=== PATIENT | male | born 1950 | race Caucasian/White ===

== ENCOUNTER → 2016-08-29 | Outpatient (CLI) | payer OTHER ==
[~2016-08-29] VITALS: Ht 172.7 cm; Wt 80.7 kg
[~2016-08-29] MED LIST: ACCURETIC 20-21 EACH PO; ASPIRIN325 PO; AZATHIOPRINE50 MG PO; BAYER CHEWABLE81 MG PO; COSAMIN DS TAB1 EACH PO; FISH OIL 1,001000 M2 PO; GLUCOSAMINE HC500 MG PO; HYDRALAZINE 2525 M1 PO; HYDROCHLOROTHIA25 M2 PO; KLOR-CON 1010 MEQ PO; LOPRESSOR25 PO; MESTINON60 MG PO; MOBIC7.5 MG PO; NITROSTAT0.4 M1 SL; NORCO 10-325 T1 EACH PO; PHOSPHATIDYLCHOL1 GM PO; PREDNISONE 10 M10 MG PO; PREDNISONE 20 M20 MG PO; PROTONIX 20 MG20 M1 PO; PYRIDOSTIGMINE PO; PYRIDOSTIGMINE60 M1 PO; QUERCETIN DIHYDR1 GM MC; TOPROL XL50 MG PO; TYLENOL325 MG PO; ZOCOR 10 MG TAB10 MG PO
--- NOTE | ~2016-08-29 | HPC ---
[facility] [address] [place] [address] PAIN MANAGEMENT CONSULTATION Name: LIDIA GUERRERO BRENDAN [facility] [id number] Admission: 08/29/16 Attend Phys: Pranay Crum DO Discharge: Date of : 48 Report #: [id number] THIS REPORT FOR: //name// CC: Zabrina Crum INDICATIONS: A 66-year-old gentleman seen in consultation at the request of Dr. Cee for evaluation of pain in neck, left shoulder and arm. The patient notes the pain began greater than 6 weeks ago without antecedent trauma and overuse. Notes he has pain in neck, left shoulder and arm. Paresthesia going into the middle and ring finger. He notes pain, he rates anywhere from 4-8 on a 0-10 visual analog scale, described as continuous and sharp. No significant weakness at this time. He notes tension in his shoulders or movement of the neck exacerbates pain, some relief when he was semi-recumbent and relaxed. The patient incidentally notes that he had a prior lumbar radicular symptom treated with a round of prednisone that it helped. He had been on prednisone in the past for myasthenia gravis , but he had been off prednisone for about a year prior to this most recent cervical radicular issue. He states he has been on prednisone at 50-60 mg a day with some efficacy, though when he tries to drop to 40 mg, his pain becomes quite problematic. REVIEW OF SYSTEMS: Complete review of systems was attached to chart and gone over with the patient. He is . Does not smoke, drink alcohol to excess. History of high blood pressure treated with hydrochlorothiazide and hydralazine. History of coronary artery disease status post endovascular stent in 2005, has not required any Nitrostat or had subsequent chest pain since. Dyslipidemia for which he takes a "statin". The patient was diagnosed with myasthenia gravis about 2 years ago. He has been treated with Imuran, Mestinon and prednisone. Again, notes he had been off prednisone for nearly a year when the cervical radicular symptoms occurred. He has had prior rotator cuff surgery, inguinal hernia repair, right femur surgery in 1966, the aforementioned endovascular stent in 2005, and left and right hip surgeries in 2007 and 2013 respectively. 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 Pain impact score is quite significant for sleep and enjoyment of life. Otherwise, score is about 5.2 for all indices queried. PHYSICAL EXAMINATION: GENERAL: A 5 foot 7 inch, 175 pound gentleman in moderate distress. VITAL SIGNS: BMI is 27.1 kg/m sq. Blood pressure is 145/95, pulse 70, respirations are 15. NEUROLOGIC: Cranial nerves 2-12 are grossly intact. Pupils equal, reactive to light and accommodation. Extraocular muscles are intact. Cervical range of motion is limited. Positive limit with pain going into the left hand again into [facility] [address] [place] [address] PAIN MANAGEMENT CONSULTATION Name: LIDIA GUERRERO Room #: REG JENNIE Pickard#: [id number] Admission: 08/29/16 Attend Phys: Pranay Crum DO Discharge: Date of : 48 Report #: [id number] the long and ring fingers. Deep tendon reflexes are preserved. SKIN AND INTEGUMENT: Intact. HEART: Regular rate and rhythm without murmur. LUNGS: Clear to auscultation. MUSCULOSKELETAL: He has an endomorphic build. EXTREMITIES: Lower extremity strength is symmetric at 4/5. DIAGNOSTIC STUDIES: Include cervical spine x-rays from 08/22/2016, noting cervical spondylosis. Dr. Cee's office note refers to cervical x-rays from 07/24/2016, noting degenerative changes primarily C5 through C7. ASSESSMENT: Symptomatic cervical radiculopathy by clinical exam. RECOMMENDATIONS: 1. We will start the patient on nonsteroidal anti-inflammatory medication, Meloxicam 7.5 b.i.d. 2. Cervical epidural injection under fluoroscopy today. We will have the patient start to aggressively wean his prednisone after the steroid injection, he has been on 50 mg presently decreased to 40, tomorrow 30, the next day 20 mg a day for the next 7 days and then have him drop to 10 mg for the next 7 days. I would like to see him back in 2 weeks for evaluation. If radicular symptoms continue, we will need MRI of the cervical spine at that time. Thank you for allowing me to participate in the patient's care. I will keep you abreast of his progress. PROCEDURE: Cervical epidural steroid injection under fluoroscopy. PROCEDURE NOTE: After written and informed consent was obtained including risk of dural puncture, spinal cord trauma, paralysis and increased pain, the patient was taken to the fluoroscopy suite and placed in the prone position, with appropriate abdominal bolstering, neck was flexed, palms under the thighs. Skin was prepped with ChloraPrep. Sterile draping was applied. Skin wheal with 1% Xylocaine was raised. A 22-gauge 3-1/2 inch epidural Tuohy needle was placed via a midline approach at the C7-T1 interspace, advanced under biplanar fluoroscopy using continuous loss of resistance. With appropriate loss of resistance at the expected depth on lateral view, the glass loss of resistance syringe was disconnected. A low volume extension tubing was connected to the needle and a 5 mL syringe. Negative aspiration for cerebrospinal fluid or blood was noted. A 1 mL of Omnipaque was injected which showed spread within the epidural space on biplanar fluoroscopy. This was followed with 80 mg of triamcinolone plus 1 mL of 1.5% preservative Xylocaine. Needle was withdrawn to the interspinous ligament, 0.5 mL of Xylocaine was used to flush the needle. The needle was then completely withdrawn. The area was cleansed. Band-Aid was applied. The patient was allowed to move off the procedure table and ambulated [facility] [address] [place] [address] PAIN MANAGEMENT CONSULTATION Name: LIDIA GUERRERO Room #: REG [facility]#: [id number] Admission: 08/29/16 Attend Phys: Pranay Crum DO Discharge: Date of : 48 Report #: [id number] to the recovery room, monitored for an appropriate period of time, discharged in good and stable condition. <ELECTRONICALLY SIGNED> By: Pranay Crum DO 09/03/16 0729 1635 0224 Pranay Crum DO /nt
[2016-08-29 13:00] VITALS: BP 145/95
== END ==
LOC: PAIN 07:27
DX: M54.12 Radiculopathy, cervical region (principal); I25.10 Atherosclerotic heart disease of native coronary artery without angina pectoris; G70.00 Myasthenia gravis without (acute) exacerbation; Z87.891 Personal history of nicotine dependence; Z95.818 Presence of other cardiac implants and grafts

== ENCOUNTER → 2016-10-10 | Outpatient (CLI) | payer OTHER ==
[~2016-10-10] VITALS: Ht 170.2 cm; Wt 78.0 kg
--- NOTE | ~2016-10-10 | HPC ---
[facility] [address] [place] [address] PAIN MANAGEMENT CONSULTATION Name: LIDIA GUERRERO Room #: REG [facility] Neeraj#: [id number] Admission: 10/10/16 Attend Phys: Pranay Crum DO Discharge: Date of : 48 Report #: [id number] THIS REPORT FOR: //name// CC: Zabrina Crum The patient is a pleasant 66-year-old gentleman, prior seen for symptomatic cervical radiculopathy; had 2 cervical epidural injections 08/29/2016 and again on 09/19/2016. The patient notes he has had near 100% relief of symptoms, but pain has recurred in neck, left shoulder, and arm. PHYSICAL EXAMINATION: Shows a fairly classic Lhermitte's with pain going to the left shoulder and arm. Has decreased left triceps strength and a diminished left triceps deep tendon reflex. Biceps and brachioradialis are symmetric. ASSESSMENT: Symptomatic cervical radiculopathy, left C7 distribution. RECOMMENDATION: 1. MRI of the cervical spine. 2. Repeat epidural injection under fluoroscopy today to help with acute symptoms. Continue nonsteroidal anti-inflammatory medication. Follow up after MRI for reevaluation. We will likely refer to Neurosurgery for more definitive intervention. ASSESSMENT: Symptomatic cervical radiculopathy. PROCEDURE: Cervical epidural steroid injection under fluoroscopy. PROCEDURE NOTE: After written and informed consent was obtained including risk of dural puncture, spinal cord trauma, paralysis and increased pain, the patient was taken to the fluoroscopy suite and placed in the prone position, with appropriate abdominal bolstering, neck was flexed, palms under the thighs. Skin was prepped with ChloraPrep. Sterile draping was applied. Skin wheal with 1% Xylocaine was raised. A 22-gauge 3-1/2 inch epidural Tuohy needle was placed via a midline approach at the C7-T1 interspace, advanced under biplanar fluoroscopy using continuous loss of resistance. With appropriate loss of resistance at the expected depth on lateral view, the glass loss of resistance syringe was disconnected. A low volume extension tubing was connected to the needle and a 5 mL syringe. Negative aspiration for cerebrospinal fluid or blood was noted. A 1 mL of Omnipaque was injected which showed spread within the epidural space on biplanar fluoroscopy. This was followed with 80 mg of triamcinolone plus 1 mL of 1.5% preservative Xylocaine. Needle was withdrawn to the interspinous ligament, 0.5 mL of Xylocaine was used to flush the needle. The needle was then completely withdrawn. The area was cleansed. Band-Aid was applied. The patient was allowed to move off the [place] [id number] PAIN MANAGEMENT CONSULTATION Name: LIDIA GUERRERO Room #: REG JENNIE Pickard#: [id number] Admission: 10/10/16 Attend Phys: Pranay Crum DO Discharge: Date of : 48 Report #: [id number] to the recovery room, monitored for an appropriate period of time, discharged in good and stable condition. <ELECTRONICALLY SIGNED> By: Pranay Crum DO 10/13/16 0806 1325 1802 Pranay Crum DO /nt
[2016-10-10 12:35] VITALS: BP 143/83
== END | disposition home or self-care (01) ==
LOC: PAIN 07:23
DX: M54.12 Radiculopathy, cervical region (principal); Z87.891 Personal history of nicotine dependence